=== PATIENT | male | born 1990 ===

== ENCOUNTER 2023-10-21 09:05 | Day surgery (SDC) | payer BC ==
[~2023-10-21 09:05] MED LIST: Midazolam 1 MG/ML 2 ML SDV ONE; Propofol 200 MG/20 ML SDV ONE
[2023-10-21] MEDS ORDERED: Sodium Chloride 0.9% 10 ML Syringe FLUSH PRN (09:15)
[2023-10-21] MEDS: Lactated Ringers 1,000 ML IV SCH (10:02)
== END 2023-10-21 11:46 | disposition home or self-care (01) ==
LOC: LL.SDS 09:05
PROVIDERS: ATTEND Surgery
DX: K92.1 Melena (principal); I49.9 Cardiac arrhythmia, unspecified; D50.8 Other iron deficiency anemias; Z79.899 Other long term (current) drug therapy; Z87.891 Personal history of nicotine dependence
CPT/HCPCS: J2250; J2704; J7120